=== PATIENT | male | born 1970 | race Hispanic/Latino ===

== ENCOUNTER 2024-01-11 09:55 | Outpatient (CLI) | payer BC | END 2024-01-11 09:56 | disposition home or self-care (01) | LOC: CSHULT 09:55 | PROVIDERS: ATTEND Family Medicine | DX: R10.13 Epigastric pain (principal); N13.30 Unspecified hydronephrosis; K82.9 Disease of gallbladder, unspecified | CPT/HCPCS: 76700 ==